=== PATIENT | male | born 1950 | race Caucasian/White ===

== ENCOUNTER 2020-05-05 12:57 | Day surgery (SDC) | payer BC ==
[2020-05-05] VITALS (11 sets, daily range): BP systolic 129–157; BP diastolic 44–94; PULSE 49–58; TEMP 97.8–98.2
[~2020-05-05] VITALS: Ht 180.3 cm; Wt 116.6 kg
[2020-05-05 13:53] LABS: CALCIUM 9.5 mg/dL (8.4-10.2); CREATININE, serum 1.37 (0.66-1.25); POTASSIUM 4.4 mmol/L (3.4-5.0)
[2020-05-05] MEDS ORDERED: HYGROTON 2525 MG/TAB PO (14:00)
[2020-05-05] MEDS ORDERED: COREG 6.256.25 MG/TA PO (14:00)
[2020-05-05] MEDS ORDERED: CYANOCOBAL1000 MCG/1 IM (14:02)
[2020-05-05] MEDS ORDERED: SYNTHROID0.1 MG/TAB PO (14:03)
[2020-05-05] MEDS ORDERED: FLOMAX 0.40.4 MG/CAP PO (14:03)
[2020-05-05] MEDS ORDERED: GLUCOPHAGE500 MG/TAB PO (14:04)
[2020-05-05] MEDS ORDERED: ADALAT CC60 MG PO (14:04)
[2020-05-05] MEDS ORDERED: BENICAR40 MG PO (14:05)
[2020-05-05] MEDS ORDERED: PRILOSEC 20MG20 MG PO (14:06)
[2020-05-05] MEDS ORDERED: ONGLYZA5 MG PO (14:06)
[2020-05-05] MEDS ORDERED: ZOCOR 40MG40 MG PO (14:07)
[2020-05-05] MEDS ORDERED: ALDACTONE 25MG25 M1 PO (14:07)
--- NOTE | 2020-05-05 14:40 | NUR ---
The patient was taken via chart to the operating room by JOSE ARMANDO Chong. The patient's chart was sent with him to surgery. The patient's belongings were taken over the recovery room and will be transferred with the patient to the 3rd floor post operatively.
--- NOTE | 2020-05-05 16:35 | NUR ---
Patient to room via bed from PACU. Alert and oriented x3. Patient is drowsy. with patient. CBI at medium rate, villa with peach colored urine in bag. Denies pain, no nausea. Will provide water and jello at this time.
--- NOTE | 2020-05-05 21:00 | NUR ---
PT IN BED. HAS CBI INFUSING WITH LIGHT PINK RETURN IN GRAY. IS ALERT AND ORIENTED X3. HAS SL TO LEFT FOREARM, CAPPED AT THIS TIME. PT TAKING FLUIDS WELL. CATHETER CARES PROVIDED. DENIES PAIN AT THIS TIME.
--- NOTE | 2020-05-06 00:04 | NUR ---
PT GIVEN MELATONIN 3MG FOR SLEEP. DENIES NEEDS AT THIS TIME.
[2020-05-06 05:20] VITALS: BP 117/62; PULSE 48; TEMP 97.9
--- NOTE | 2020-05-06 06:00 | NUR ---
URINE IS PINK. CBI INFUSING SLOW.
--- NOTE | 2020-05-06 06:52 | NUR ---
Patient lying in bed on right side with eyes open. Denies pain. Patient has O2 on at 2L/NC, not normally on at home, oxygen removed at this time. [place] to dependent drainage with light clear red urine in bag. CBI at slow rate. Patient denies any needs or concerns at this time.
[2020-05-06 07:29] VITALS: BP 160/62; PULSE 62; TEMP 97.4
--- NOTE | 2020-05-06 09:05 | NUR ---
Discussed procedure for prime and pull with the patient and his . Giselle care provided. 29mL removed from balloon, catheter pulled at this time. Patient tolerates well. Denies additional needs at this time.
[2020-05-06 11:46] VITALS: BP 137/50; PULSE 49; TEMP 97.9
--- NOTE | 2020-05-06 11:55 | NUR ---
Patient urine dark red. Encouraged patient to drink more water at this time. Has completed three cups of six cup routine. Denies pain. Hopes to get out of the hospital soon. Denies needs at this time. in room with the patient.
--- NOTE | 2020-05-06 13:41 | NUR ---
Patient has urinated again, this fills cup six. Urine is still dark marroquin in color, this last void had a clot in it. Patient informed staff that he is ready to go and he is already dressed. Contacted Dr. Mensah and provided update and he says that the patient needs to stay and continue to drink water and we need to continue to monitor his urine until it clears up. Patient informed. Patient is a little frustrated because he wants to go home. Reassurance provided. remains in room with the patient.
--- NOTE | 2020-05-06 15:17 | NUR ---
Last three voids have been light clear pink color. No clots the last couple voids. Patient says that he is ready to go home. Contact Dr. Mensah and provide update. Dr. Mensah good with patient discharging and the patient needs to continue to drink plenty of water and also wake up a couple times through the night to drink water as well.
--- NOTE | 2020-05-06 15:29 | NUR ---
Review discharge instructions with the patient. Questions answered. Patient instructed to drink lots of water and to wake up through the night to keep drinking water. Patient verbalizes understanding and signs discharge paperwork. Discharge packet provided to the patient. Patient assisted out to POV by this nurse with his .
== END 2020-05-06 15:30 | disposition home or self-care (01) ==
LOC: JCC 12:57 → SDCO 12:57 → JCC 16:38 → SDCO 05-06 15:30
PROVIDERS: Nurse Anesthetist, Certified Registered
DX: N40.1 Benign prostatic hyperplasia with lower urinary tract symptoms (principal); N13.8 Other obstructive and reflux uropathy; R39.12 Poor urinary stream; R39.15 Urgency of urination; R35.0 Frequency of micturition; E11.42 Type 2 diabetes mellitus with diabetic polyneuropathy; Z20.828 Contact with and (suspected) exposure to other viral communicable diseases; I25.5 Ischemic cardiomyopathy; I25.10 Atherosclerotic heart disease of native coronary artery without angina pectoris; D64.9 Anemia, unspecified; E53.8 Deficiency of other specified B group vitamins; I10 Essential (primary) hypertension; D75.1 Secondary polycythemia; K22.70 Barrett's esophagus without dysplasia; M48.00 Spinal stenosis, site unspecified; G47.33 Obstructive sleep apnea (adult) (pediatric); E66.9 Obesity, unspecified; K21.9 Gastro-esophageal reflux disease without esophagitis; E78.5 Hyperlipidemia, unspecified; M19.90 Unspecified osteoarthritis, unspecified site; Z79.84 Long term (current) use of oral hypoglycemic drugs; Z79.899 Other long term (current) drug therapy; Z79.82 Long term (current) use of aspirin; M54.12 Radiculopathy, cervical region
CPT/HCPCS: OP; J0690; J1100; J2405; J2704; J3010; J7030